=== PATIENT | female | born 1940 | race Caucasian/White ===

== ENCOUNTER 2018-07-19 05:47 | Day surgery (SDC) | payer OTHER ==
[~2018-07-19] VITALS: Ht 152.4 cm; Wt 84.3 kg
[2018-07-19] VITALS (17 sets, daily range): BP systolic 137–181; BP diastolic 52–92; PULSE 50–98; RESP 12–28; Ht 152.4 cm; Wt 84.3 kg
[2018-07-19] MEDS ORDERED: POLYMYXIN/BACITRACIN 1L IRRIG ONE (06:51)
[2018-07-19] MEDS ORDERED: BUPIVACAINE 0.25% (MPF) 30 ML INJ ONE (06:51)
[2018-07-19] MEDS ORDERED: LIDOCAINE 2% (SDV) 5 ML INJ ONE (07:00)
[2018-07-19] MEDS ORDERED: DESFLURANE 15 MIN ONE (07:00)
[2018-07-19] MEDS ORDERED: ALBU18HF INHALATION (07:02)
[2018-07-19] MEDS ORDERED: ERGO500013 PO (07:02)
[2018-07-19] MEDS ORDERED: CALC1TAB72 PO (07:02)
[2018-07-19] MEDS ORDERED: CARV3.12 PO (07:02)
[2018-07-19] MEDS ORDERED: OMEG1CAP17 PO (07:02)
[2018-07-19] MEDS ORDERED: ATOR20TA38 PO (07:02)
[2018-07-19] MEDS ORDERED: DICL50TA11 PO (07:02)
[2018-07-19] MEDS ORDERED: LOSA50TA14 PO (07:02)
--- NOTE | 2018-07-19 07:22 | PREAC ---
Date/Time of Note Date/Time of Note DATE: 07/19/18 TIME: 07:20 Anesthesia Eval and Record Evaluation Time Pre-Procedure Interview DATE: 07/19/18 TIME: 07:20 Age 78 Sex female NPO: 8 hrs Preoperative diagnosis umbilical hernia Planned procedure umbilical hernia repair Past Medical History Past Medical History: Includes Cardio: HTN, Dyslipidemia GI: Obesity Surgery & Anesthesia Issues No known issue Meds Anticoagulation: No Beta Debbi within 24 hr: No Reason Beta Debbi not given: Pt. not on B-Debbi Reported Medications Albuterol Sulfate* (Ventolin HFA*) 18 Gm Hfa.aer.ad, 2 PUFF INHALATION Q6H, #1 INHALER 07/19/18 Manor-3 Fatty Acids/Fish Oil (Fish Oil 1,000 mg Softgel) 1 Each Capsule, 1 CAP PO BID, CAP 07/19/18 Ergocalciferol (Vitamin D2) (VITAMIN D2) 50,000 Unit Capsule, 96403 UNIT PO weekly, CAP 07/19/18 Atorvastatin Calcium* (Atorvastatin Calcium*) 20 Mg Tablet, 20 MG PO QHS, #30 TAB 07/19/18 Diclofenac Sodium* (Diclofenac Sodium*) 50 Mg Tablet.dr, 50 MG PO BID, #60 TAB 07/19/18 Calcium Citrate/Vitamin D3 ([place] Calcium + D Tablet) 1 Each Tablet, 0.5 TAB PO DAILY, TAB 07/19/18 Carvedilol* (Coreg*) 3.125 Mg Tablet, 3.125 MG PO BID, #60 TAB 07/19/18 Losartan Potassium* (Losartan Potassium*) 50 Mg Tablet, 50 MG PO BID, TAB 07/19/18 Meds reviewed: Yes Allergies Coded Allergies: No Known Allergies (Verified Allergy, Unknown, 07/19/18) Allergies Reviewed: Yes Labs/Studies Labs Reviewed: Reviewed by anesthesiologist test: N/A Pre-procedure Exam Last vitals Vital Signs Date Temp Pulse Resp B/P (MAP) Pulse Ox O2 O2 Flow FiO2 Time Delivery Rate 07/19/18 97.5 70 18 137/65 97 Room Air 06:48 (89) Airway: Adequate mouth opening, Adequate thyromental dist Mallampati: Mallampati II Teeth: Normal Lung: Normal Heart: Normal ASA Physical Status ASA physical status: 2 Emergency: None Planned Anesthetic General/MAC: ETT, LMA Planned Pain Management Parenteral pain med Pre-operative Attestations Prior to commencing anesthesia and surgery, the patient was re-evaluated, there was verification of: *The patient's identity *The results of appropriate recent lab work and preoperative vital signs *The above evaluation not changing prior to induction *Anesthetic plan, risk benefits, alternative and complications discussed with patient/family; questions answered; patient/family understands, accepts and wishes to proceed. ELIJAH MOLINA Jul 19, 2018 07:22
[2018-07-19] MEDS ORDERED: PROPOFOL 20 ML ONE (07:26)
[2018-07-19] MEDS ORDERED: ROCURONIUM 50 MG INJ ONE (07:27)
[2018-07-19] MEDS ORDERED: FENTAnyl 50 MCG/ML VIAL ONE (07:29)
[2018-07-19] MEDS ORDERED: DEXAMETHASONE 4 MG/ML 5 ML INJ ONE (07:47)
[2018-07-19] MEDS ORDERED: CEFAZOLIN 1 GM INJ ONE (07:47)
[2018-07-19] MEDS ORDERED: ONDANSETRON 4 MG INJ ONE (07:47)
[2018-07-19] MEDS ORDERED: NEOSTIGMINE 3 MG/3 ML SYRINGE ONE (08:09)
[2018-07-19] MEDS ORDERED: GLYCOPYRROLATE 0.4 MG INJ ONE (08:09)
--- NOTE | 2018-07-19 08:10 | HPN ---
Date/Time of Note Date/Time of Note DATE: 07/19/18 TIME: 08:10 Interval H&P Admission Note Pt. seen H&P reviewed: No system changes JEFFERY SAHNI MD Jul 19, 2018 08:10
[2018-07-19] MEDS ORDERED: LABETALOL HCL 20MG INJ ONE (08:11)
--- NOTE | 2018-07-19 08:16 | OPR ---
Date/Time of Note Date/Time of Note DATE: 07/19/18 TIME: 08:11 Operative Report Procedure Date: Jul 19, 2018 Preoperative Diagnosis Umbilical hernia without obstruction Postoperative Diagnosis Umbilical hernia without obstruction Operation/Procedure Performed Repair with medium circular patch Surgeon Nasir Sahni MD Firing Pin Gauger None Anesthesia Type: general Anesthesiologist: ELIJAH MOLINA Estimated Blood Loss: minimal Transfusion none Specimen Umbilical hernia sac Grafts/Implants Medium circular patch Tubes/Drains None Complications none Pt Condition Post Procedure: stable Disposition: PACU Indications Symptomatic umbilical hernia Procedure Description After satisfactory general anesthesia was achieved, the abdomen was prepped and draped in the usual fashion. The skin was dissected from the sac with blunt and electrocautery dissection. The sac was dissected to the fascial opening where it was excised with electrocautery and submitted. The omentum which was within the sac was able to be reduced through the fascial defect which measured 2-1/2 cm. A medium circular patch was placed below the fascial defect as an underlay. The fascia was approximated on either side with a single suture of #1 Vicryl. The mesh was then secured to healthy fascia via its mesh straps utilizing interrupted 2-0 Novafil suture. Redundant mesh straps were excised and discarded. The resultant repair was a tension-free underlay repair. The wound was infiltrated with 20 cc of 0.25% plain Marcaine. The umbilicus was tacked to the midline with 3-0 Vicryl. The subcu was closed with interrupted 3-0 Vicryl. Skin was closed with lois. Sponge and needle counts were reported as correct x2. NASIR SAHNI MD Jul 19, 2018 08:16
[2018-07-19] MEDS ORDERED: MEPERIDINE 25 MG INJ IV PRN (08:30)
[2018-07-19] MEDS ORDERED: ONDANSETRON 4 MG INJ IV PRN ×2 (08:30→09:30)
[2018-07-19] MEDS ORDERED: EPHEDrine SULFATE 50 MG/5 ML SYG IV PRN (08:30)
[2018-07-19] MEDS ORDERED: MIDAZOLAM 1 MG/ML 2 ML INJ IV PRN (08:30)
[2018-07-19] MEDS ORDERED: METOCLOPRAMIDE 10 MG INJ IV PRN (08:30)
[2018-07-19] MEDS ORDERED: LABETALOL HCL 20MG INJ IV PRN (08:30)
[2018-07-19] MEDS ORDERED: OXYCODONE/ACETAMINOPHEN (5/325) TAB PO PRN ×4 (08:30→09:30)
[2018-07-19] MEDS ORDERED: FENTAnyl 50 MCG/ML VIAL IV PRN ×3 (08:30)
[2018-07-19] MEDS ORDERED: DIPHENHYDRAMINE 50 MG INJ IV PRN (08:30)
[2018-07-19] MEDS ORDERED: KETOROLAC 30 MG INJ IV PRN (08:30)
[2018-07-19] MEDS ORDERED: HYDROmorphONE 1 MG/5 ML IV SYRINGE IV PRN ×3 (08:30)
[2018-07-19] MEDS ORDERED: hydrALAzine 20 MG INJ IV PRN (08:30)
[2018-07-19] MEDS ORDERED: ALBUTEROL 0.083% (NEB) 2.5 MG/3 ML AMP HHN PRN (08:30)
--- NOTE | 2018-07-19 08:30 | PAC ---
Date/Time of Note Date/Time of Note DATE: 07/19/18 TIME: 08:28 Post-Anesthesia Notes Post-Anesthesia Note Last documented vital signs Vital Signs Date Temp Pulse Resp B/P (MAP) Pulse Ox O2 O2 Flow FiO2 Time Delivery Rate 07/19/18 97.5 70 18 137/65 97 Room Air 0828 (89) Activity: WNL Respiratory function: WNL Cardiovascular function: WNL Mental status: Baseline Pain reasonably controlled: Yes Hydration appropriate: Yes Nausea/Vomiting absent: Yes ELIJAH MOLINA Jul 19, 2018 08:30
[2018-07-19] MEDS ORDERED: morphine 2 MG INJ IV PRN (09:30)
== END 2018-07-19 12:25 | disposition home or self-care (01) ==
LOC: SDS 05:47
PROVIDERS: ATTEND Surgery
DX: K42.9 Umbilical hernia without obstruction or gangrene (principal); I10 Essential (primary) hypertension; E78.5 Hyperlipidemia, unspecified; E66.9 Obesity, unspecified
CPT/HCPCS: 49585; 88302; C1781; J0360; J0690; J1100; J1170; J1885; J2405; J2710; J3010; Z7512; Z7610